=== PATIENT | male | born 1990 | race American Indian/Alaskan Native ===

== ENCOUNTER 2018-11-25 08:51 | Emergency (ER) | payer MEDICAID ==
[2018-11-25 09:03] VITALS: BMI 32.1
[2018-11-25 09:13] VITALS: BP 112/67; PULSE 66; RESP 18; TEMP 98.2; O2SAT 96
[2018-11-25] MEDS ORDERED: Tmp-Smz 800 mg-160 mg DS Tab PO STA (09:26)
--- NOTE | 2018-11-25 09:30 | ED PDOC ---
Arrival/HPI - General Chief Complaint: ENT Problem Time Seen by Provider: 11/25/18 09:04 Historian: Patient - History of Present Illness Narrative History of Present Illness (Text): 11/25/18 28 yo male come in for evaluation of Right ear painful swelling gradually developed for past 3-4 days. Pt reports, was seen at different ED 2 days ago when was given Rx: Kelfex with worsening of sx. Pt denies known trauma or injury, fever, chills, headache, dizziness, vertigo, ear discharge, tinnutus, denies recent illness. Ambulate to ED for evaluation, not in any apparent distress. Past Medical History - Provider Review Nursing Documentation Reviewed: Yes OBINNA Report Viewed: No - Past History Past History: No Previous - Psychiatric Hx Substance Use: No Family/Social History - Physician Review Nursing Documentation Reviewed: Yes Family/Social History: No Known Family HX Smoking Status: Light Smoker < 10 Cigarettes Daily Hx Alcohol Use: Yes Frequency of alcohol use: Socially Hx Substance Use: No Allergies/Home Meds Allergies/Adverse Reactions: Allergies No Known Allergies Allergy (Verified 11/25/18 09:03) Home Medications: Home Meds Medication Instructions Recorded Confirmed Cephalexin [Keflex] 500 mg PO BID 11/25/18 11/25/18 Review of Systems - Physician Review All systems were reviewed & negative as marked: Yes - Review of Systems Constitutional: Normal ENT: Other (Right earache). absent: Hearing Changes, Tinnitus, Sore Throat, Rhinorrhea Respiratory: Normal Skin: Normal Neurological: Normal Endocrine: Normal Hemo/Lymphatic: Normal Psychiatric: Normal Physical Exam Vital Signs Reviewed: Yes Vital Signs Temp Pulse Resp BP Pulse Ox 11/25/18 09:03 98.2 F 66 18 112/67 96 Temperature: Afebrile Blood Pressure: Normal Pulse: Regular Respiratory Rate: Normal Appearance: Positive for: Well-Appearing, Non-Toxic, Comfortable Pain Distress: Mild Mental Status: Positive for: Alert and Oriented X 3 - Systems Exam Conjunctiva: Present: Normal Ears: Present: NORMAL TM (Left), Normal Canal (Left), Other (Right ear: small tender mass noted just inner to tragus, inside ear canal with central small pustula yellowish discharge. No mastoid tenderness B/L) Mouth: Present: Moist Mucous Membranes, Normal Lips. No: Drooling Pharnyx: No: ERYTHEMA, EXUDATE, Uvular Deviation Nose (Internal): Present: Normal Inspection Neck: Present: Trachea Midline. No: Meningeal Signs Respiratory/Chest: Present: Clear to Auscultation, Good Air Exchange. No: Respiratory Distress, Accessory Muscle Use, Wheezes Skin: Present: Warm, Dry, Normal Color Psychiatric: Present: Alert, Oriented x 3 Disposition/Present on Arrival - Present on Arrival Any Indicators Present on Arrival: No History of DVT/PE: No History of Uncontrolled Diabetes: No Urinary Catheter: No History of Decub. Ulcer: No History Surgical Site Infection Following: None - Disposition Have Diagnosis and Disposition been Completed?: Yes Diagnosis: Abscess Disposition: HOME/ ROUTINE Disposition Time: 09:27 Patient Plan: Discharge Condition: STABLE Discharge Instructions (ExitCare): Abscess Incision and Drainage Print Language: UGANDAN Additional Instructions: Take antibiotic as prescribed , may continue keflex as well Warm compresses to area Clean twice daily for peroxide Follow up with ENT in 1-2 days for re-evaluation return to ED if any worsening or new changes Prescriptions: Sulfamethoxazole/Trimethoprim [Bactrim DS 800 mg-160 mg] 1 tab PO BID #14 tab traMADol [Ultram] 50 mg PO TID #7 tab Referrals: FAMILY PROVIDER,NO [Primary Care Provider] - Follow up with primary David Chacko DO [Staff Provider] - Follow up with primary Forms: [employer] (Khmer) - Incision & Drainage Of Abscess Prep Used: Betadine Procedure: Drained Pus (with needle gauge #22)
== END 2018-11-25 09:45 | disposition home or self-care (01) ==
LOC: ED 08:51
DX: H60.01 Abscess of right external ear (principal)